=== PATIENT | female | born 2000 | race Two or more races ===

== ENCOUNTER 2021-01-24 03:02 | Emergency (ER) | payer MEDICAID ==
[~2021-01-24] VITALS: Ht 157.5 cm; Wt 69.1 kg
[2021-01-24 03:16] VITALS: BP 130/80
== END 2021-01-24 03:30 ==
LOC: ER 03:03
DX: F10.129 Alcohol abuse with intoxication, unspecified (principal); M25.531 Pain in right wrist; V87.7XXA Person injured in collision between other specified motor vehicles (traffic), initial encounter; Y93.89 Activity, other specified; Y92.488 Other paved roadways as the place of occurrence of the external cause; Y99.8 Other external cause status; Y90.0 Blood alcohol level of less than 20 mg/100 ml
CPT/HCPCS: 99283